=== PATIENT | male | born 1980 | race Caucasian/White ===

== ENCOUNTER 2017-04-27 13:20 | Emergency (ER) | payer BC ==
[~2017-04-27] VITALS: Ht 177.8 cm; Wt 176.0 kg
[2017-04-27] MEDS ORDERED: KEFLEX500 MG PO (17:52)
== END 2017-04-27 18:26 | disposition home or self-care (01) ==
LOC: ED 13:20
DX: I87.2 Venous insufficiency (chronic) (peripheral) (principal); L97.929 Non-pressure chronic ulcer of unspecified part of left lower leg with unspecified severity; L97.919 Non-pressure chronic ulcer of unspecified part of right lower leg with unspecified severity; L03.116 Cellulitis of left lower limb; L03.115 Cellulitis of right lower limb; Z88.8 Allergy status to other drugs, medicaments and biological substances
CPT/HCPCS: 80053; 85025; 99283

== ENCOUNTER 2024-07-06 20:10 | Emergency (ER) | payer OTHER ==
[~2024-07-06] VITALS: Ht 177.8 cm; Wt 161.5 kg
[~2024-07-06 20:10] MED LIST: KEFLEX500 MG PO
[2024-07-06] MEDS ORDERED: COZAAR25 MG (20:23)
[2024-07-06] MEDS ORDERED: ENALAPRILAT DIHYDRATE 1.25 MG/ML VIAL IV ONE (20:30)
[2024-07-06] MEDS ORDERED: LOSARTAN POTASS50 MG PO (20:52)
[2024-07-06 21:18] VITALS: BP 145/80
--- NOTE | 2024-07-07 21:34 | EKG ---
[facility] [address] [facility] [place], [place] [address] Signed Normal sinus rhythm Septal infarct , age undetermined Abnormal ECG No previous ECGs available Confirmed by Naseem Sam DO ([id number]) on 07/07/2024 9:34:35 PM Electronically Signed By: NASEEM SMA DO 07/07/24 213 PATIENT NAME: BENTONDAYTONLEATHA JR Electrocardiogram DATE OF : 84 PHYSICIAN: NASEEM SAM DO REPORT #: [id number] REPORT IS CONFIDENTIAL AND NOT TO BE RELEASED WITHOUT AUTHORIZATION
== END 2024-07-06 21:19 | disposition home or self-care (01) ==
LOC: ED 20:10
DX: I10 Essential (primary) hypertension (principal); G47.30 Sleep apnea, unspecified; Z88.1 Allergy status to other antibiotic agents; Z88.8 Allergy status to other drugs, medicaments and biological substances; Z79.899 Other long term (current) drug therapy
CPT/HCPCS: 93005; 93010; 96374; 99283-25